=== PATIENT | male | born 1985 | race Asian ===

== ENCOUNTER 2020-07-27 08:02 | Emergency (ER) | payer OTHER, BC ==
[~2020-07-27] VITALS: Ht 165.1 cm; Wt 72.6 kg
[2020-07-27 08:20] VITALS: Ht 165.1 cm; Wt 72.6 kg
[2020-07-27 09:25] VITALS: BP 108/61
== END 2020-07-27 09:25 | disposition home or self-care (01) ==
LOC: ED 08:02
DX: M25.512 Pain in left shoulder (principal); V49.49XA Driver injured in collision with other motor vehicles in traffic accident, initial encounter; Y93.I9 Activity, other involving external motion; Y92.488 Other paved roadways as the place of occurrence of the external cause; Y99.8 Other external cause status
CPT/HCPCS: Q0092